=== PATIENT | female | born 1965 | race Asian ===

== ENCOUNTER 2021-05-31 20:39 | Inpatient (IN) | payer MEDICAID ==
[~2021-05-31] VITALS: Ht 152.4 cm; Wt 63.0 kg
--- NOTE | 2021-05-31 20:55 | NUR ---
PATIENT REPORTS ONLY ONE DRINK AT [facility] WHILE EATING. DM II DID NOT CHECK HER SUGAR TODAY PRIOR TO DRINKING. SOFT SPOKEN VOICE. ICE PACK TO OCCIPITAL REGION, DENIES BLOOD THINNER. SCAB TO LEFT OCCIPATAL REGION WHERE PATIENT HIT HEAD. HOB ELEVATED
--- NOTE | 2021-05-31 21:22 | NUR ---
retuned from ct without incident
[2021-05-31] MEDS ORDERED: NO HOME MEDS (22:05)
[2021-05-31 22:10] LABS: BASOPHILS % (AUTO) 0.5 % (0-1); EOSINOPHILS # (AUTO) 0.1 X10'3 (0-0.9); EOSINOPHILS % (AUTO) 1.5 % (0-6); HEMATOCRIT 41.2 % (35.0-45.0); HEMOGLOBIN 14.4 g/dl (12.0-16.0); LYMPHOCYTES # (AUTO) 1.5 X10'3 (1.1-4.8); LYMPHOCYTES % (AUTO) 37.1 % (21-51); MEAN CORPUSCULAR HEMOGLOBIN 32.6 PG (27.0-31.0); MEAN CORPUSCULAR HGB CONC 34.9 g/dL (33.0-36.5); MEAN CORPUSCULAR VOLUME 93.5 FL (78-98); MEAN PLATELET VOLUME 7.7 FL (7.4-10.4); MONOCYTES # (AUTO) 0.3 X10'3 (0-0.9); MONOCYTES % (AUTO) 6.1 % (2-12); NEUTROPHILS # (AUTO) 2.3 X10'3 (1.8-7.7); NEUTROPHILS % (AUTO) 54.8 % (42-75); PLATELET COUNT 189 X10'3 (140-440); RED CELL DISTRIBUTION WIDTH 12.8 % (11.5-14.5); WHITE BLOOD COUNT 4.2 X10'3 (4.5-11.0)
--- NOTE | 2021-05-31 22:13 | NUR ---
spouse at bedside
[2021-05-31 22:16] LABS: APTT 27 SECONDS (22-32)
[2021-05-31 22:21] LABS: ALANINE AMINOTRANSFERASE 60 U/L (12-78); ALBUMIN 3.3 G/DL (3.4-5.0); ALBUMIN/GLOBULIN RATIO 0.9 (1.1-1.5); ALKALINE PHOSPHATASE 172 IU/L (46-116); ANION GAP 14 (8-16); ASPARTATE AMINO TRANSFERASE 39 U/L (10-37); BILIRUBIN,TOTAL 0.2 MG/DL (0.1-1.0); BLOOD UREA NITROGEN 10 MG/DL (7-18); BUN/CREATININE RATIO 18.2 (6.6-38.0); CALCIUM 8.3 MG/DL (8.5-10.1); CHLORIDE 102 MMOL/L (99-107); CREATININE 0.55 MG/DL (0.40-0.90); ETHANOL 0.204 GM/DL (0.0-0.010); GLUCOSE 321 MG/DL (70-104); POTASSIUM 3.8 MMOL/L (3.5-5.1); SODIUM 137 MMOL/L (135-145); TOTAL CARBON DIOXIDE 21.4 MMOL/L (24-32); eGFR > 90 ML/MIN
[2021-05-31 22:47] LABS: URINE AMPHETAMINE SCREEN NEGATIVE (Neg); URINE BARBITUATE SCREEN NEGATIVE (Neg); URINE BENZODIAZEPINES SCREEN NEGATIVE (Neg); URINE CANNABINOID SCREEN NEGATIVE (Neg); URINE COCAINE SCREEN POSITIVE (Neg); URINE METHADONE SCREEN NEGATIVE (Neg); URINE OPIATE SCREEN NEGATIVE (Neg); URINE PHENCYCLIDINE SCREEN NEGATIVE (Neg)
[2021-05-31] MEDS ORDERED: LORazepam 1 MG tablet PO PRN (22:55)
[2021-05-31] MEDS ORDERED: magnesium Cl slow-release 64mg tablet PO PRN (22:55)
[2021-05-31] MEDS ORDERED: ondansetron/PF 4mg/2ml inj IV PRN (22:55)
[2021-05-31] MEDS ORDERED: magnesium 4gm in 100ml NS 100 ML IV PRN (22:55)
[2021-05-31] MEDS ORDERED: mag hydrox/Alum hydrox/simeth 30ml oral suspension PO PRN (22:55)
[2021-05-31] MEDS ORDERED: LORazepam 2 mg/ml vial IV PRN (22:55)
[2021-05-31] MEDS: normal saline 1000ml 1,000 ML IV SCH (22:55)
[2021-05-31] MEDS ORDERED: magnesium 2GM in 50ml NS 50 ML IV PRN (22:55)
[2021-05-31] MEDS ORDERED: morphine 2 MG/ML inj. syringe IV PRN (22:55)
[2021-05-31] MEDS ORDERED: acetaminophen 325mg tablet PO PRN ×2 (22:55)
[2021-05-31] MEDS ORDERED: potassium CL 10mEq/100ml bag 100 ML IV PRN (22:55)
[2021-05-31] MEDS ORDERED: potassium Cl 20 mEq SR tablet PO PRN ×2 (22:55)
[2021-05-31] MEDS ORDERED: HYDROcodone/acetaminophen 5mg/325mg tablet PO PRN (22:55)
[2021-05-31] MEDS ORDERED: magnesium hydroxide 30ml (MOM) UD suspension PO PRN (22:55)
[2021-05-31 23:48] LABS: HEMOGLOBIN A1C 9.7 % (4.5-6.2)
[2021-06-01 02:48] LABS: CLARITY,URINE CLEAR (Clear); COLOR,URINE YELLOW (Yellow); GLUCOSE, URINE >=1000 mg/dl (Neg); KETONES,URINE TRACE mg/dl (Neg); LEUKOCYTE ESTERASE ,URINE NEGATIVE (Neg); NITRITES, URINE NEGATIVE (Neg); OCCULT BLOOD,URINE NEGATIVE (Neg); PROTEIN,URINE NEGATIVE (Neg); UROBILINOGEN,URINE 0.2 E.U/dL (0.2-1.0)
[2021-06-01 02:52] LABS: UA COLLECTION TYPE VOIDED
[2021-06-01 03:03] LABS: BACTERIA,URINE NONE SEEN /HPF (Neg); MUCUS STRANDS NONE SEEN /LPF (Neg); RBC,URINE NONE SEEN /HPF (0-2); SQUAMOUS EPITHELIAL CELL,UR FEW /LPF (FEW); WBC,URINE 0-4 /HPF (0-4)
--- NOTE | 2021-06-01 03:18 | NUR ---
PLACED ON HOSPITAL BED, PATIENT AWAKE ALERT COOPERATIVE.
--- NOTE | 2021-06-01 06:40 | NUR ---
Report attempted, TL Narayanan to call back.
--- NOTE | 2021-06-01 07:15 | NUR ---
Report given to RN Lady, pt going to room 5671T
[2021-06-01 07:16] LABS: ALANINE AMINOTRANSFERASE 50 U/L (12-78); ALBUMIN 3.2 G/DL (3.4-5.0); ALBUMIN/GLOBULIN RATIO 0.9 (1.1-1.5); ALKALINE PHOSPHATASE 151 IU/L (46-116); ANION GAP 8 (8-16); ASPARTATE AMINO TRANSFERASE 27 U/L (10-37); BILIRUBIN,TOTAL 0.3 MG/DL (0.1-1.0); BLOOD UREA NITROGEN 8 MG/DL (7-18); BUN/CREATININE RATIO 16.3 (6.6-38.0); CALCIUM 7.9 MG/DL (8.5-10.1); CHLORIDE 108 MMOL/L (99-107); CREATININE 0.49 MG/DL (0.40-0.90); GLUCOSE 224 MG/DL (70-104); LIPASE 135 U/L (73-393); POTASSIUM 4.1 MMOL/L (3.5-5.1); SODIUM 139 MMOL/L (135-145); TOTAL CARBON DIOXIDE 23.3 MMOL/L (24-32); TOTAL PROTEIN 6.6 G/DL (6.4-8.2); eGFR > 90 ML/MIN
[2021-06-01 07:45] LABS: BASOPHILS % (AUTO) 0.6 % (0-1); EOSINOPHILS # (AUTO) 0.1 X10'3 (0-0.9); EOSINOPHILS % (AUTO) 1.6 % (0-6); HEMATOCRIT 38.1 % (35.0-45.0); LYMPHOCYTES # (AUTO) 1.3 X10'3 (1.1-4.8); LYMPHOCYTES % (AUTO) 25.7 % (21-51); MEAN CORPUSCULAR HEMOGLOBIN 31.7 PG (27.0-31.0); MEAN CORPUSCULAR HGB CONC 34.3 g/dL (33.0-36.5); MEAN CORPUSCULAR VOLUME 92.5 FL (78-98); MEAN PLATELET VOLUME 7.9 FL (7.4-10.4); MONOCYTES # (AUTO) 0.4 X10'3 (0-0.9); NEUTROPHILS # (AUTO) 3.3 X10'3 (1.8-7.7); NEUTROPHILS % (AUTO) 64.1 % (42-75); PLATELET COUNT 168 X10'3 (140-440); RED BLOOD COUNT 4.12 X10'6 (4.20-5.60); RED CELL DISTRIBUTION WIDTH 12.8 % (11.5-14.5); WHITE BLOOD COUNT 5.2 X10'3 (4.5-11.0)
[2021-06-01] MEDS: K and/or MAG REPLACEMENT MC SCH ×2 (08:00→20:00)
[2021-06-01] MEDS: normal saline 1000ml 1,000 ML IV SCH ×2 (08:55→18:55)
[2021-06-01] MEDS: multivitamins, therapeutics tablet PO SCH (09:45)
[2021-06-01] MEDS: heparin, porcine 5000 units/ml vial SQ SCH ×2 (09:46→20:37)
[2021-06-01 10:00] VITALS: BP 160/94
[2021-06-01] MEDS ORDERED: METF-436 PO (10:35)
--- NOTE | 2021-06-01 10:39 | NUR ---
Message: [id number] [facility] rec completed, please address. Thank you, ABDOULAYE BOOTHE
--- NOTE | 2021-06-01 10:46 | NUR ---
Diabetes consult: Noted pt w/ hx of DM A1c 9.7 and has hx of EtOH and cocaine use per EMR. Pt states she was diagnosed w/ DM a month or two ago. Provided pt w/ written and verbal DM ed w/ RD contact info. Addendum: 06/01/21 at [address] Amended: Links added.
[2021-06-01] MEDS ORDERED: MESSAGE TO PHARMACY PO ONE (10:55)
[2021-06-01] MEDS ORDERED: DEXTROSE 15 GM of carb/4 tabs (each vial/BOTTLE has 4 tablets) PO PRN ×2 (10:55)
[2021-06-01] MEDS ORDERED: glucagon, human recombinant 1mg kit SUBCUT PRN (10:55)
[2021-06-01] MEDS ORDERED: dextrose 50%-water 50ml dispensing syringe IV PRN ×2 (10:55)
[2021-06-01 12:07] LABS: CHOL/HDL RATIO 3.5 (0.00-4.99); CHOLESTEROL 268 MG/DL (0-200); HDL CHOLESTEROL 76 MG/DL (35-60); LDL CHOLESTEROL 172 MG/DL (50-100); TRIGLYCERIDES 156 MG/DL (20-135)
[2021-06-01 12:10] LABS: HIV ANTIBODY 1&2 RAPID NON-REACTIVE (Neg)
[2021-06-01] MEDS ORDERED: GADOTERATE MEGLUMINE 10 MMOL/20 ML SYRINGE IV ONE (12:45)
[2021-06-01] MEDS: insulin Lispro (HumaLOG) vial - multi-dose SQ SCH ×2 (14:55→20:35)
[2021-06-01 16:00] VITALS: BP 174/92
--- NOTE | 2021-06-01 18:45 | NUR ---
Report to Jahaira BOOTHE
--- NOTE | 2021-06-01 18:47 | NUR ---
Patient in room ORTHO 4022. I have received report from TL SMITH and had the opportunity to ask questions and assume patient care. Addendum: 06/01/21 at 1848 by Jahaira Dickson RN Amended: Links added.
[2021-06-01 20:00] VITALS: BP_SYST 164; BP_SYST 167; BP_DIAS 87; BP_DIAS 89
[2021-06-01 22:00] VITALS: BP 202/106
[2021-06-01] MEDS ORDERED: aspirin 325mg tablet PO ONE (22:20)
[2021-06-01] MEDS: insulin glargine (Lantus) pen - multi-dose SQ SCH (23:08)
[2021-06-01] MEDS: atorvastatin 20mg tablet PO SCH (23:12)
[2021-06-02] VITALS (9 sets, daily range): BP systolic 109–193; BP diastolic 60–104
[2021-06-02] MEDS: normal saline 1000ml 1,000 ML IV SCH (02:36)
[2021-06-02 06:01] LABS: BASOPHILS % (AUTO) 0.7 % (0-1); EOSINOPHILS # (AUTO) 0.2 X10'3 (0-0.9); EOSINOPHILS % (AUTO) 4.1 % (0-6); HEMATOCRIT 34.8 % (35.0-45.0); HEMOGLOBIN 12.1 g/dl (12.0-16.0); LYMPHOCYTES # (AUTO) 2.1 X10'3 (1.1-4.8); LYMPHOCYTES % (AUTO) 49.7 % (21-51); MEAN CORPUSCULAR HEMOGLOBIN 32.2 PG (27.0-31.0); MEAN CORPUSCULAR HGB CONC 34.9 g/dL (33.0-36.5); MEAN CORPUSCULAR VOLUME 92.4 FL (78-98); MEAN PLATELET VOLUME 7.9 FL (7.4-10.4); MONOCYTES # (AUTO) 0.3 X10'3 (0-0.9); NEUTROPHILS # (AUTO) 1.6 X10'3 (1.8-7.7); NEUTROPHILS % (AUTO) 38.5 % (42-75); PLATELET COUNT 148 X10'3 (140-440); RED BLOOD COUNT 3.76 X10'6 (4.20-5.60); RED CELL DISTRIBUTION WIDTH 12.7 % (11.5-14.5); WHITE BLOOD COUNT 4.2 X10'3 (4.5-11.0)
[2021-06-02 06:22] LABS: ALANINE AMINOTRANSFERASE 39 U/L (12-78); ALBUMIN 2.6 G/DL (3.4-5.0); ALBUMIN/GLOBULIN RATIO 0.8 (1.1-1.5); ALKALINE PHOSPHATASE 119 IU/L (46-116); ANION GAP 12 (8-16); ASPARTATE AMINO TRANSFERASE 18 U/L (10-37); BILIRUBIN,TOTAL 0.2 MG/DL (0.1-1.0); BLOOD UREA NITROGEN 8 MG/DL (7-18); BUN/CREATININE RATIO 19.5 (6.6-38.0); CALCIUM 7.4 MG/DL (8.5-10.1); CHLORIDE 106 MMOL/L (99-107); CREATININE 0.41 MG/DL (0.40-0.90); GLUCOSE 194 MG/DL (70-104); MAGNESIUM 2.2 MG/DL (1.5-2.4); PHOSPHORUS 3.9 MG/DL (2.3-4.5); POTASSIUM 3.5 MMOL/L (3.5-5.1); SODIUM 138 MMOL/L (135-145); TOTAL PROTEIN 5.9 G/DL (6.4-8.2); eGFR > 90 ML/MIN
--- NOTE | 2021-06-02 06:23 | NUR ---
Problems reprioritized. Patient report given, questions answered & plan of care reviewed with TL STANFORD. Addendum: 06/02/21 at 0626 by Jahaira Dickson RN Amended: Links added.
[2021-06-02] MEDS: K and/or MAG REPLACEMENT MC SCH ×2 (08:00→20:00)
[2021-06-02] MEDS: atorvastatin 20mg tablet PO SCH (08:19)
[2021-06-02] MEDS: multivitamins, therapeutics tablet PO SCH (08:19)
[2021-06-02] MEDS: aspirin 81mg tab.chew PO SCH (08:19)
[2021-06-02] MEDS: insulin Lispro (HumaLOG) vial - multi-dose SQ SCH ×3 (08:25→19:04)
[2021-06-02] MEDS ORDERED: iohexol 350MG/ML 100ml bottle IV ONE (09:35)
--- NOTE | 2021-06-02 11:59 | NUR ---
Met with patient in regards to alcohol use and to see if patient wanted resources for treatment options. Patient doesn't feel like she needs a program. I talked to patient about medication that can help her and gave her my card to call me with any questions.
[2021-06-02] MEDS: heparin, porcine 5000 units/ml vial SQ SCH (20:00)
[2021-06-02] MEDS: MESSAGE TO NURSING PO SCH (20:00)
[2021-06-02] MEDS: insulin glargine (Lantus) pen - multi-dose SQ SCH (22:04)
[2021-06-03 00:03] VITALS: BP 178/91
[2021-06-03 02:38] VITALS: BP 172/89
[2021-06-03 04:17] VITALS: BP 182/94
[2021-06-03 05:41] LABS: BASOPHILS % (AUTO) 0.3 % (0-1); EOSINOPHILS % (AUTO) 0.6 % (0-6); HEMATOCRIT 39.2 % (35.0-45.0); HEMOGLOBIN 13.5 g/dl (12.0-16.0); LYMPHOCYTES # (AUTO) 1.6 X10'3 (1.1-4.8); LYMPHOCYTES % (AUTO) 29.5 % (21-51); MEAN CORPUSCULAR HEMOGLOBIN 31.9 PG (27.0-31.0); MEAN CORPUSCULAR HGB CONC 34.6 g/dL (33.0-36.5); MEAN CORPUSCULAR VOLUME 92.3 FL (78-98); MEAN PLATELET VOLUME 8.1 FL (7.4-10.4); MONOCYTES # (AUTO) 0.3 X10'3 (0-0.9); NEUTROPHILS # (AUTO) 3.5 X10'3 (1.8-7.7); NEUTROPHILS % (AUTO) 63.6 % (42-75); PLATELET COUNT 165 X10'3 (140-440); RED BLOOD COUNT 4.24 X10'6 (4.20-5.60); WHITE BLOOD COUNT 5.5 X10'3 (4.5-11.0)
--- NOTE | 2021-06-03 05:56 | NUR ---
Agree with Shy[facility] [employer] physical assessment.
[2021-06-03 06:09] LABS: ALANINE AMINOTRANSFERASE 88 U/L (12-78); ALBUMIN/GLOBULIN RATIO 0.8 (1.1-1.5); ALKALINE PHOSPHATASE 149 IU/L (46-116); ANION GAP 11 (8-16); ASPARTATE AMINO TRANSFERASE 52 U/L (10-37); BILIRUBIN,TOTAL 0.2 MG/DL (0.1-1.0); BLOOD UREA NITROGEN 7 MG/DL (7-18); BUN/CREATININE RATIO 15.9 (6.6-38.0); CALCIUM 8.3 MG/DL (8.5-10.1); CHLORIDE 104 MMOL/L (99-107); CREATININE 0.44 MG/DL (0.40-0.90); GLUCOSE 170 MG/DL (70-104); MAGNESIUM 2.3 MG/DL (1.5-2.4); PHOSPHORUS 4.6 MG/DL (2.3-4.5); POTASSIUM 3.7 MMOL/L (3.5-5.1); SODIUM 140 MMOL/L (135-145); TOTAL CARBON DIOXIDE 25.3 MMOL/L (24-32); TOTAL PROTEIN 6.9 G/DL (6.4-8.2); eGFR > 90 ML/MIN
--- NOTE | 2021-06-03 06:15 | NUR ---
RECEIVED REPORT FROM TL ANGEL/ETHAN ALBERTS
[2021-06-03] MEDS: MESSAGE TO NURSING PO SCH (07:56)
[2021-06-03] MEDS: K and/or MAG REPLACEMENT MC SCH (07:57)
[2021-06-03 08:00] VITALS: BP 171/88
[2021-06-03] MEDS: atorvastatin 20mg tablet PO SCH (08:03)
[2021-06-03] MEDS: multivitamins, therapeutics tablet PO SCH (08:04)
[2021-06-03] MEDS: aspirin 81mg tab.chew PO SCH (08:05)
[2021-06-03] MEDS: heparin, porcine 5000 units/ml vial SQ SCH (08:06)
[2021-06-03] MEDS: insulin Lispro (HumaLOG) vial - multi-dose SQ SCH (08:17)
[2021-06-03 10:00] VITALS: BP 174/92
[2021-06-03] MEDS ORDERED: FOLI0.4T6 PO (10:27)
[2021-06-03] MEDS ORDERED: ATOR20TA66 PO (10:27)
[2021-06-03] MEDS ORDERED: THIA50TA10 PO (10:27)
[2021-06-03] MEDS ORDERED: MULT-25 PO (10:27)
[2021-06-03] MEDS ORDERED: ASPI81TA53 PO (10:27)
--- NOTE | 2021-06-03 12:00 | NUR ---
charge nurse d/c pt with instructions, understanding of instructions and w/all belongings walking out to private vehicle to go home and f/u w/pcp
[2021-06-03 16:23] LABS: HBSAG SCREEN Negative (Negative); HEP A AB, IGM Negative (Negative); HEPATITIS C ANTIBODY <0.1 s/co ratio (0.0-0.9)
[2021-06-03] MEDS ORDERED: LINA5TAB4 PO (19:24)
[2021-06-03] MEDS ORDERED: PROP10TA10 PO (19:24)
[2021-06-03] MEDS ORDERED: METF-436 PO (19:24)
[2021-06-05] MEDS ORDERED: thiamine 100mg tablet PO SCH (08:00)
[2021-06-05] MEDS ORDERED: folic acid 1mg tablet PO SCH (08:00)
== END 2021-06-03 11:40 | disposition home or self-care (01) | DRG 204 ==
LOC: ER 20:40 → ED HOLD 23:02 → ORTHO 4S 06-01 07:37
PROVIDERS: ADMIT Internal Medicine; ATTEND Family Medicine
PROC: BW291ZZ Computerized Tomography (CT Scan) of Head and Neck using Low Osmolar Contrast (ICD-10-PCS; principal; 2021-06-02)
DX: R55 Syncope and collapse (principal); E11.65 Type 2 diabetes mellitus with hyperglycemia; F10.129 Alcohol abuse with intoxication, unspecified; F14.10 Cocaine abuse, uncomplicated; I10 Essential (primary) hypertension; W18.39XA Other fall on same level, initial encounter; Z86.73 Personal history of transient ischemic attack (TIA), and cerebral infarction without residual deficits; Y93.89 Activity, other specified; Y92.89 Other specified places as the place of occurrence of the external cause; Y99.8 Other external cause status; Z79.899 Other long term (current) drug therapy; Z79.82 Long term (current) use of aspirin
CPT/HCPCS: 36415; 70450; 70496; 70498; 70544; 70553; 71045; 80053; 80061; 80305; 80320; 81001; 82948; 83036; 83605; 83690; 83735; 84100; 84145; 84443; 85025; 85610; 85730; 86703; 86705; 86706; 86709; 86803; 87040; 87340; 93005; 93306; 93880; 96360; 97110; 97161; 99285; A9575; G0378; J1644; J1815; J7030; Q9967

== ENCOUNTER 2025-01-12 14:41 | Emergency (ER) | payer MEDICAID ==
[~2025-01-12] VITALS: Ht 154.9 cm; Wt 59.1 kg
[~2025-01-12 14:41] MED LIST: ASPI81TA53 PO; ATOR20TA66 PO; LINA5TAB4 PO; METF-436 PO; MULT-25 PO; THIA50TA10 PO
[2025-01-12 15:06] VITALS: BP 136/79; PULSE 84; RESP 17; TEMP 98.6; O2SAT 97
--- NOTE | 2025-01-12 17:17 | Physician Documentation ---
History of Present Illness ~ Chief Complaint: Wrist pain Stated Complaint: R ARM PAIN Time Seen by MD: 15:38 HPI Patient is a 59-year-old female that presents to the emergency department for re-evaluation of fractured wrist that she sustained 2 days ago. Patient was seen at the clinic two days ago and told to follow up with Orthopedics. Patient's wrist was appropriately splinted with a soft splint and immobilize her arm was also placed into a sling. Patient's concerns today are that it has not healed and she is worried about that. Explained to patient in triage that healing bones can take 6-8 weeks and that she needs to follow up with Orthopedics. We will provide the patient with another orthopedic referral. 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 Tetanus within 5 years: Yes Medication Reconciliation Allergies: Coded Allergies: No Known Allergies (Unverified , 05/31/21) Scheduled Aspirin (Children's Aspirin), 81 MG PO DAILY@0830 Atorvastatin Calcium (Atorvastatin Calcium), 40 MG PO DAILY Linagliptin (Tradjenta), 1 TAB PO DAILY Metformin Hcl (Metformin Hcl), 2 TAB PO BID Multivitamin with Folic Acid (Thera Tablet), 1 EACH PO Q24H Thiamine HCl (Vitamin B-1), 2 TAB PO DAILY Past Medical History Past Medical History: No Pertinent History Past Surgical History: noncontributory Patient History: Patient reports no known family medical history. Alcohol Use: Heavy Lives In: Home Review of Systems ROS As stated above in the HPI, otherwise all systems are reviewed and negative. Physical Exam Vital Signs: Temperature: 98.6, Source: Oral, Heart Rate: 84, Respiratory Rate: 17, BP: 136/79, Pulse Oximetry: 97, Weight: 59.090 Oxygen Flow Rate: 0 Physical Exam VITALS: Reviewed and as above. GENERAL: Alert, no apparent distress. 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 SKIN: Warm and dry, no rash NEURO: Oriented x4, No motor or sensory deficit PSYCH: Normal mood and affect, no agitation Progress Results/Orders Results/Orders Vital Signs 01/12/25 15:06 Temp 98.6 Pulse 84 Resp 17 B/P (MAP) 136/79 Pulse Ox 97 O2 Flow Rate 0 Medical Decision Making Additional information obtaine: other Findings Patient is a 59-year-old female that presents to the emergency department for re-evaluation of fractured wrist that she sustained 2 days ago. Patient was seen at the clinic two days ago and told to follow up with Orthopedics. Patient's wrist was appropriately splinted with a soft splint and immobilize her arm was also placed into a sling. Patient's concerns today are that it has not healed and she is worried about that. Explained to patient in triage that healing bones can take 6-8 weeks and that she needs to follow up with Orthopedics. We will provide the patient with another orthopedic referral. 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 No imaging indicated. Patient will be referred to orthopedics. General Diff Dx:Considerations: Include: Abrasion, Contusion, Fracture, Hematoma, Laceration, Malunion, Neurovascular injury, Open fracture, Sprain, Ulcer, Other Shoulder Diff Dx:Consideration: Include: AC separation, Adhesive capsulitis, Arthritis, Bicipital tendonitis, Calcific tendonitis, Cervical disc disease, Contusion, Dislocation, Fracture-humerus, Fracture-scapula, Fracture-clavicle, GB disease, Hematoma, Impingement syndrome, Myocardial infarction, Neurovascular injury, Open fracture-humerus, Open fracture-scapula, Open fracture-clavicle, Rotator cuff injury, SC dislocatoin, Sprain, Subacromial bursitis, Other Elbow Diff Dx:Considerations: Include: Abrasion, Arthritis, Contustion, DJD, Fracture-humerus, Fracture-radial head, Fracture-radius, Fracture-ulna, Gout, Hematoma, Laceration, Neurovascular injury, Olecranon bursitis, Open fracture, Osteomyelitis, Radial head subluxation, Rheumatoid arthritis, Septic, Sprain, Ulcer, Other Wrist Diff Dx:Considerations: Include: Abrasion, Arthritis, DJD, Gout, Rheumatoid, Septic, Carpal tunnel snydrome, Contusion, Dislocation, Fracture- carpal, Fracture-radius, Fracture-ulna, Ganglion, Laceration, Neurovascular injury, Open fracture, Strain, Other Hand Diff Dx:Considerations: Include: Abrasion, Arthritis, Contusion, DJD, Felon, Fracture-carpal, Fracture-metacarpal, Fracture-phalynx, Fracture-radius, Fracture-ulna, Gout, Hematoma, Herpetic michael, Laceration, Neurovascular injury, Open fracture, Paronychia, Rheumatoid arthritis, Septic, Sprain, Subungual hematoma, Tenosynovitis, Volar plate injury, Cellulitis, Malunion, Other Finger Diff Dx:Considerations: Include: Abrasion, Cellulitis, Contusion, Dislocation, Fracture, Hematoma, Laceration, Neurovascular injury, Open fracture, Subungual hematoma, Other Departure Disposition: 01 HOME / SELF CARE / HOMELESS Impression: Primary Impression: Wrist joint pain Additional Impression: Wrist fracture Discharge Instructions: Wrist Pain, Adult, Wrist Fracture Treated With Immobilization Additional Instructions: Tylenol ibuprofen as needed for discomfort please keep your wrist immobilized in the splint please keep your arm in the sling if it is comfortable. Please follow up with Orthopedics Wednesday. Please follow up with her primary care provider if you have any additional concerns. Please return to the emergency department if you have any worsening or recurrent symptoms or any additional concerning symptoms that we discussed here today. Please follow up with [facility] on Wednesday [phone]. Referrals: NO PRIMARY CARE PROVIDER (PCP) Education Educated: Patient Educated regarding: diagnosis, treatment, need for follow up Signature Scribe Signature: A Attestation: Scribed for Gage Miugel by AMAIRANI Coe . 01/12/25 17:20 GAEG MIGUEL Jan 12, 2025 17:17
== END 2025-01-12 17:25 | disposition home or self-care (01) ==
LOC: ER 14:42
DX: S62.101A Fracture of unspecified carpal bone, right wrist, initial encounter for closed fracture (principal); F10.90 Alcohol use, unspecified, uncomplicated; Z88.6 Allergy status to analgesic agent; X58.XXXA Exposure to other specified factors, initial encounter; Y93.89 Activity, other specified; Y92.89 Other specified places as the place of occurrence of the external cause; Y99.8 Other external cause status; Y90.9 Presence of alcohol in blood, level not specified
CPT/HCPCS: 29125; 99283